=== PATIENT | male | born 1950 | race African-American/Black ===

== ENCOUNTER 2024-03-09 15:13 | Emergency (ER) | payer MEDICARE, MEDICAID, SELFPAY ==
--- NOTE | ~2024-03-09 | XR_ITS ---
XR chest 2V Ordering provider: Lennie Francisco NP History: 73 years Male with . dry cough . Comparison: None. FINDINGS: MEDIASTINUM: The cardiac silhouette is not enlarged. Deviation of the trachea to the left side is not ed which may indicate a soft tissue mass in the superior mediastinum. Further evaluation with the CT is advised. LUNGS: No infiltrates, effusions or pneumothorax. OTHER: No free air under the diaphragm. Degenerative the spine IMPRESSION: Deviation of the trachea to the left with possible mass in the superior mediastinum. CT evaluation ad vised. No acute cardiopulmonary pathology. Reviewed, dictated and finalized at location A. IMPRESSION: Deviation of the trachea to the left with possible mass in the superior mediast inum. CT evaluation advised. No acute cardiopulmonary pathology.
[2024-03-09 15:26] VITALS: BP 123/62; PULSE 58; RESP 16; TEMP 36.3; O2SAT 100
--- NOTE | 2024-03-09 15:42 | ED.URI ---
HPI - URI/Sore Throat General Chief Complaint: Upper Respiratory Infection Stated Complaint: Fever/Cough/Runny Nose Time Seen by Provider: 03/09/24 15:40 Source: patient, family, RN notes reviewed and old records reviewed Mode of arrival: ambulatory Limitations: no limitations History of Present Illness HPI Narrative: 73 year old male presents to express care with concern over 2-3 day history of dry cough denies any other symptoms at this time no fevers,chills or body aches has been using cough drops. Patient denies any feeling of being short of breath at rest or with exertion. Patient reports that he is concerned he needs chest xray to make sure he doesn't pneumonia. informed staff that patient has lump on the left side of his throat and recently had ultrasound of area and then patient had CT of neck and chest and suppose to get test results back tomorrow. MD elicited complaint: cough Onset (ago): day(s) (2-3) Severity: mild Able to tolerate fluids by mouth: Yes Treatments prior to arrival: other (cough drops) Related Data Home Medications Medication Instructions Recorded Confirmed albuterol sulfate 90 mcg/actuation inhalation 03/09/24 aerosol inhaler bimatoprost 0.01 % eye drops drp 03/09/24 ([place]) dorzolamide 2 % eye drops drp 03/09/24 levothyroxine 50 mcg tablet mcg 03/09/24 prednisolone acetate 1 % eye drp 03/09/24 drops,suspension Allergies Allergy/AdvReac Type Severity Reaction Status Date / Time No Known Allergies Allergy Verified 03/09/24 15:28 Review of Systems Review of Systems: CONSTITUTIONAL: Denies malaise, chills, sweats, or fever. EYES: Denies visual changes, redness, or discharge. ENT: Reports no rhinorrhea, congestion, sinus pain, otalgia and/or sore throat. CARDIOVASCULAR: Denies chest pain, palpitations, or edema. RESPIRATORY: Reports dry cough.? Denies dyspnea. GASTROINTESTINAL: Denies abdominal pain, nausea, vomiting, diarrhea SKIN: Denies rash or itching. MUSCULOSKELETAL: Denies myalgia. NEUROLOGIC: Denies headache. All systems reviewed & are unremarkable except as noted in HPI and below PMFSH Past Medical History Medical History (Updated 03/10/24 @ 14:23 by Lennie Francisco NP) Cataracts, bilateral Glaucoma Hypothyroid Social History Social History (Updated 03/10/24 @ 14:17 by Lennie Francisco NP) Smoking status: Never smoker Alcohol intake: current Alcohol use details: rare social Substance use type: does not use Living arrangements: with family Gender identity (if verbalized by the patient): Male Comments At time of signature, agree with nursing past medical, surgical, social and family history. There is no relevant family history pertinent to the presenting complaint Exam Narrative: GENERAL: Well-appearing, well-nourished, and in no acute distress. HEAD: Normocephalic EYES: PERRLA, conjunctivae clear ENT: Nares clear, turbinates edematous and erythematous, clear discharge. Mucous membranes moist. TM pearly beck with dull light reflex bilaterally; no tragal tenderness. Oropharynx erythematous without lesions. Tonsils not enlarged and without exudate, no drooling, no hoarseness, no trismus, uvula midline. NECK: Supple. No lymphadenopathy palpable soft tissue mass to left lower throat area. CHEST: Clear to auscultation, breath sounds equal. No wheezing, rhonchi, rales, or stridor. No respiratory distress, speaks in full sentences.SAO2 100% on room air no tachypnea HEART: Regular rate and rhythm. No murmur heard. SKIN: Warm, dry, no rash. NEURO: Alert and oriented x3. PSYCH: Normal mood and affect Course Course Emergency Course: Patient is aware of diagnosis, understands and agrees to treatment plan.? Anticipatory guidance given.? Patient agrees to follow-up as directed and is aware of reasons to seek care at the emergency department. Portions of this record may have been created with
== END 2024-03-09 16:44 | disposition home or self-care (01) ==
PROVIDERS: Emergency Provider Registered Nurse; PCP Family Medicine
DX: R05.9 Cough, unspecified (principal); E03.9 Hypothyroidism, unspecified; H40.9 Unspecified glaucoma; H26.9 Unspecified cataract
CPT/HCPCS: 71046; 99203; G0463